=== PATIENT | female | born 1960 | race Caucasian/White ===

== ENCOUNTER 2022-01-09 10:47 | Emergency (ER) | payer BC ==
[~2022-01-09] VITALS: Ht 167.6 cm; Wt 56.2 kg
[2022-01-09 11:06] VITALS: BP 143/92
[2022-01-09] MEDS ORDERED: TDAP [DIPH/PERTUSSIS/TET] 0.5 ML VIAL IM ONE ×2 (11:30→11:38)
[2022-01-09] MEDS ORDERED: BACI/NEOM/POLY B OINT PKT 1 UDPKT PACKET TP ONE (11:30)
--- NOTE | 2022-01-09 11:51 | NUR ---
Patient discharged to home in stable condition. Written and verbal after care instructions given. Patient verbalizes understanding of instruction.
== END 2022-01-09 11:51 | disposition home or self-care (01) ==
LOC: ER 10:58
DX: S01.03XA Puncture wound without foreign body of scalp, initial encounter (principal); Z98.890 Other specified postprocedural states; W22.8XXA Striking against or struck by other objects, initial encounter; Y93.89 Activity, other specified; Y92.89 Other specified places as the place of occurrence of the external cause; Y99.8 Other external cause status
CPT/HCPCS: 90471; 90715; 99283; A6403